=== PATIENT | female | born 1970 | race Caucasian/White ===

== ENCOUNTER 2016-12-30 02:56 | Emergency (ER) | payer BC ==
[~2016-12-30] VITALS: Ht 167.6 cm; Wt 79.8 kg
[2016-12-30] MEDS ORDERED: IV NORMAL SALINE 1000 ML BAG IV ONE (03:30)
[2016-12-30] MEDS ORDERED: ONDANSETRON IV *ER 4 MG/2 ML VIAL IV ONE (03:30)
[2016-12-30] MEDS ORDERED: MORPHINE SULFATE 4 MG/1 ML DISP.SYRIN IV ONE (03:30)
[2016-12-30] MEDS ORDERED: MORPHINE SULFATE 4 MG/1 ML DISP.SYRIN ONE (03:38)
[2016-12-30] MEDS ORDERED: ONDANSETRON 4 MG/2 ML VIAL ONE (03:38)
[2016-12-30 03:45] LABS: CARBON DIOXIDE 27 mmol/L (21-32); CHLORIDE 106 mmol/L (98-107); CREATININE 0.8 mg/dL (0.6-1.3); GLUCOSE 113 mg/dL (74-106); POTASSIUM 4.1 mmol/L (3.5-5.1); UREA NITROGEN, BLOOD 18 mg/dL (7-18)
[2016-12-30 03:46] LABS: BASOPHILS # (AUTO) 0.1 K/uL (0.0-8.0); BASOPHILS % (AUTO) 0.7 % (0.0-2.0); EOSINOPHILS # (AUTO) 0.2 K/uL (0.0-0.7); EOSINOPHILS % (AUTO) 1.7 % (0.0-7.0); HEMATOCRIT 37.9 % (37-47); HEMOGLOBIN 12.3 G/DL (12.0-16.0); LYMPHOCYTES # (AUTO) 2.7 K/UL (0.8-4.8); LYMPHOCYTES % (AUTO) 29.2 % (20.5-51.5); MEAN CORPUSCULAR HEMOGLOBIN 26.9 UUG (27.0-31.0); MEAN CORPUSCULAR HGB CONC 33 g/dL (32.0-37.0); MONOCYTES # (AUTO) 0.4 K/UL (0.1-1.30); MONOCYTES % (AUTO) 4.7 % (0.0-11.0); NEUTROPHILS # (AUTO) 5.7 K/UL (1.8-8.9); NEUTROPHILS % (AUTO) 63.7 % (38.5-71.5); PLATELET COUNT (AUTO) 368 K/UL (150-450); RED BLOOD CELL COUNT(AUTO) 4.57 MIL/UL (4.2-5.4); WHITE BLOOD COUNT (AUTO) 9.1 K/UL (4.0-11.2)
[2016-12-30 03:50] LABS: ALANINE AMINOTRANSFERASE 23 U/L (14-59); ALKALINE PHOSPHATASE 69 U/L (50-136); ASPARTATE AMINOTRANSFERASE 12 U/L (15-37); BILIRUBIN,DIRECT < 0.1 mg/dL (0.0-0.2); BILIRUBIN,TOTAL 0.2 mg/dL (0.2-1.0); LIPASE 135 U/L (73-393); TOTAL PROTEIN, SERUM 7.2 g/dL (6.4-8.2)
[2016-12-30 04:03] LABS: *BILIRUBIN,URIN NEGATIVE (NEGATIVE); *BLOOD, URINE NEGATIVE (NEGATIVE); *CLARITY,URINE CLEAR (CLEAR); *COLOR,URINE STRAW (YELLOW); *KETONES,URINE NEGATIVE (NEGATIVE); *PROTEIN,URINE NEGATIVE (NEGATIVE); *UROBILINOGEN,URINE 0.2 E.U./dl (NORMAL); LEUKOCYTE ESTERASE ,URINE NEGATIVE (NEGATIVE); NITRITE, URINE NEGATIVE (NEGATIVE); UGLUCOSE NEGATIVE (NEGATIVE)
[2016-12-30 04:09] LABS: *URINE HCG, QUAL NEGATIVE (NEGATIVE); BACTERIA,URINE NONE SEEN /HPF (NONE SEEN); RBC,URINE NONE SEEN /HPF (0-3); SQUAMOUS EPITHELIAL CELL,UR FEW /HPF (NONE SEEN); WBC,URINE 0-3 /HPF (0-3)
--- NOTE | 2016-12-30 05:04 | NUR ---
Patient discharged to home in stable conditon. Written and verbal after care instructions given. Patient verbalizes understanding of instructions.
== END 2016-12-30 05:05 | disposition home or self-care (01) ==
LOC: ER 02:59
DX: K59.00 Constipation, unspecified (principal); K57.30 Diverticulosis of large intestine without perforation or abscess without bleeding
CPT/HCPCS: 36415; 83690; 84703; 85025; A4663; J2270; J2405; J7030